=== PATIENT | female | born 1955 | race Two or more races ===

== ENCOUNTER 2021-10-02 23:49 | Inpatient (IN) | payer OTHER ==
[~2021-10-02] VITALS: Ht 165.1 cm; Wt 90.7 kg
[2021-10-02] MEDS ORDERED: HUMALOG100 UNIT/1 (23:55)
[2021-10-02] MEDS ORDERED: LANTUS SOL100 UNIT/1 (23:55)
== END 2021-10-24 15:24 | disposition home or self-care (01) | DRG 486 ==
LOC: ER 23:49 → SURH 10-03 15:16 → MEDI 10-03 15:16 → SEC-K 10-03 15:16 → MEDJ 10-03 15:16 → MEDI 10-03 15:24 → MEDJ 10-04 12:21 → SURH 10-04 17:08 → SURG 10-17 17:04 → SURH 10-23 14:41
PROVIDERS: Orthopaedic Surgery; ADMIT Internal Medicine; ATTEND Internal Medicine
PROC: 0S9C3ZZ Drainage of Right Knee Joint, Percutaneous Approach (ICD-10-PCS; 2021-10-03)
PROC: 3E1U48Z Irrigation of Joints using Irrigating Substance, Percutaneous Endoscopic Approach (ICD-10-PCS; 2021-10-04)
PROC: 0SBC4ZZ Excision of Right Knee Joint, Percutaneous Endoscopic Approach (ICD-10-PCS; principal; 2021-10-04 12:00)
PROC: 02HV33Z Insertion of Infusion Device into Superior Vena Cava, Percutaneous Approach (ICD-10-PCS; 2021-10-06)
PROC: 30243N1 Transfusion of Nonautologous Red Blood Cells into Central Vein, Percutaneous Approach (ICD-10-PCS; 2021-10-23)
DX: M00.861 Arthritis due to other bacteria, right knee (principal); M86.061 Acute hematogenous osteomyelitis, right tibia and fibula; M86.051 Acute hematogenous osteomyelitis, right femur; L97.319 Non-pressure chronic ulcer of right ankle with unspecified severity; E11.65 Type 2 diabetes mellitus with hyperglycemia; D64.9 Anemia, unspecified; M06.9 Rheumatoid arthritis, unspecified; I10 Essential (primary) hypertension; K76.9 Liver disease, unspecified
CPT/HCPCS: 73723